=== PATIENT | male | born 1965 | race Caucasian/White ===

== ENCOUNTER → 2018-06-21 | Outpatient (CLI) | payer BC ==
--- NOTE | 2018-06-22 13:45 | XR ---
EXAMINATION TYPE: XR cervical spine limited DATE OF EXAM: 06/21/2018 TECHNIQUE: Frontal, lateral and open mouth view of the cervical spine are obtained. HISTORY: S16.1XXA Strain of muscle, fascia, tendon @ neck . Neck pain. COMPARISON: None FINDINGS: The cervical spine is visualized in its entirety from C1 thru the top of T1 level, it is s atisfactory in alignment without evidence of acute fracture or dislocation. The pre-vertebral soft t issue appears within normal limits. The C1-C2 articulation is within normal limits on the open mouth view. Multilevel degenerative disc disease is seen as facet arthropathy, uncovertebral hypertrophy, intervertebral disc space narrowing and anterior osteophytes. These are seen at C5-C7 predominantly. IMPRESSION: No acute fracture or dislocation is seen in the cervical spine. Moderate multilevel dege nerative disc disease of the cervical spine.
== END | disposition home or self-care (01) ==
LOC: RADXRMAIN 15:42
PROVIDERS: ATTEND Family Medicine
DX: M50.322 Other cervical disc degeneration at C5-C6 level (principal); S16.1XXA Strain of muscle, fascia and tendon at neck level, initial encounter
CPT/HCPCS: 72040

== ENCOUNTER → 2018-10-09 | Outpatient (CLI) | payer BC ==
--- NOTE | 2018-10-09 16:09 | MR ---
EXAMINATION TYPE: MR cervical spine wo con DATE OF EXAM: 10/09/2018 COMPARISON: Plain film 06/21/2018 HISTORY: Neck pain x 6 mos, no trauma/surgery TECHNIQUE: Multiplanar, multisequence images of the cervical spine were acquired. C2-C3: No evidence for degenerative disc disease. No disc bulge/herniation or protrusion. No Canal stenosis. Foramina are patent bilaterally. C3-C4: Small posterior disc herniation is present centrally causing anterior mass effect on the theca l sac. No significant central stenosis. Minimal anterolisthesis grade 1. No foraminal encroachment. C4-C5: Lateral extension of endplate disc complex causes mild anterior mass effect on the thecal sac, minimal bilateral foraminal encroachment, no significant central stenosis. C5-C6: Mild anterior mass effect on the thecal sac due to posterior extension endplate disc complex. There is mild right-sided foraminal encroachment. No significant central stenosis. C6-C7: Posterior broad-based disc bulge causes mild anterior mass effect on the thecal sac. No signif icant central stenosis. There is some mild right-sided foraminal encroachment due to lateral extensio n of endplate disc complex. C7-T1: No evidence for degenerative disc disease. No disc bulge/herniation or protrusion. No Canal stenosis. Foramina are patent bilaterally. Cervical segments are intact. There is near normal alignment. Cervical spinal cord is of normal sig nal. Craniovertebral junction relationships are within normal limits. Cervical vertebral bodies omar w preserved height, there is spondylosis as noted on plain film greatest at C5-6 and to lesser extent C4-5 with endplate discogenic marrow signal change, loss of disc height signal is present at interve rtebral levels compatible disc desiccation and degenerative disc disease. IMPRESSION: Degenerative disc disease as described.
== END | disposition home or self-care (01) ==
LOC: RADMRIMAIN 14:31
PROVIDERS: ATTEND Family Medicine
DX: M50.30 Other cervical disc degeneration, unspecified cervical region (principal)
CPT/HCPCS: 72141

== ENCOUNTER 2021-01-01 16:04 | Emergency (ER) | payer BC, OTHER ==
[2021-01-01 16:47] VITALS: BP 125/65; PULSE 68; RESP 16; TEMP 98.2
[2021-01-01] MEDS ORDERED: DIPH,PERTUS(ACELL)TETVAC-LF 0.5 ML VIAL IM ONE (17:11)
[2021-01-01] MEDS ORDERED: BACITRACIN OINT 1 EACH PACKET TOPICAL ONE (17:11)
[2021-01-01] MEDS ORDERED: LIDOCAINE 1% INJ 10MG/ML (20 ML MDV) SQ ONE (17:11)
--- NOTE | 2021-01-01 18:00 | ED ---
Wound/Laceration HPI - General Source: patient Mode of arrival: ambulatory Limitations: no limitations <Eula Pantoja - Last Filed: 01/01/21 21:43> <Lyudmila Gabriel - Last Filed: 01/04/21 02:22> - General Chief Complaint: Wound/Laceration Stated Complaint: Finger Lac Time Seen by Provider: 01/01/21 16:46 - History of Present Illness Initial Comments: 55 year-old male patient presents to the emergency department for evaluation of laceration to the left index finger. Patient states he was using a box bender. Injury occurred about 3 hours ago. He was unable to get the bleeding to stop so he came in for evaluation. He denies use of blood thinning medications. Denies any other injuries. Denies any significant pain or any difficulty with range of motion. Denies numbness or tingling. He is unsure when his last tetanus vaccine was given. (Eula Pantoja) - Related Data Allergies Allergy/AdvReac Type Severity Reaction Status Date / Time No Known Allergies Allergy Verified 01/01/21 16:47 Review of Systems ROS Other: All systems not noted in ROS Statement are negative. <Eula Pantoja - Last Filed: 01/01/21 21:43> ROS Other: All systems not noted in ROS Statement are negative. <Lyudmila Gabriel - Last Filed: 01/04/21 02:22> ROS Statement: Those systems with pertinent positive or pertinent negative responses have been documented in the HPI. Past Medical History Past Medical History: No Reported History History of Any Multi-Drug Resistant Organisms: None Reported Past Surgical History: No Surgical Hx Reported Past Psychological History: No Psychological Hx Reported Smoking Status: Current every day smoker Past Alcohol Use History: Occasional Past Drug Use History: None Reported <Eula Pantoja - Last Filed: 01/01/21 21:43> General Exam Limitations: no limitations General appearance: alert, in no apparent distress Respiratory exam: Present: normal lung sounds bilaterally. Absent: respiratory distress, wheezes, rales, rhonchi, stridor Cardiovascular Exam: Present: regular rate, normal rhythm, normal heart sounds. Absent: systolic murmur, diastolic murmur, rubs, gallop, clicks Extremities exam: Present: full ROM, normal capillary refill, other (There is 2cm laceration to the pad of the left index finger. Mild bleeding noted. Full range of motion. Skin is otherwise pink, warm, dry. Cap refill less than 3 seconds. Radial pulses 2+.). Absent: tenderness, pedal edema, joint swelling, calf tenderness Neurological exam: Present: alert, oriented X3, CN II-XII intact Psychiatric exam: Present: normal affect, normal mood Skin exam: Present: warm, dry, intact, normal color. Absent: rash <Eula Pantoja - Last Filed: 01/01/21 21:43> Course Vital Signs 01/01/21 16:45 Temperature 98.2 F Pulse Rate 68 Respiratory 16 Rate Blood Pressure 125/65 O2 Sat by Pulse 96 Oximetry Procedures - Laceration Laceration #1 Consent Obtained: verbal consent Indication: laceration Site: hand (left index finger) Size (cm): 2 Description: linear Depth: simple, single layer Anesthetic Used: lidocaine 1% Anesthesia Technique: local infiltration Amount (mls): 2 Type of Sutures: nylon Size of Sutures: 5-0 Number of Sutures: 3 Technique: simple, interrupted Patient Tolerated Procedure: well, no complications <Eula Pantoja - Last Filed: 01/01/21 21:43> Medical Decision Making <Eula Pantoja - Last Filed: 01/01/21 21:43> <Lyudmila Gabriel - Last Filed: 01/04/21 02:22> - Medical Decision Making 55 year-old male patient presents to the emergency department for evaluation of laceration to the left index finger. Physical exam revealed a 2cm laceration with mild bleeding. Wound was cleansed and repaired as documented. He is given instructions regarding wound care and signs or symptoms of infection. Instructions to follow-up with the primary care physician for recheck in 1-2 days. Return parameters were discussed in detail. He verbalizes understanding and agree with this plan. My attending is Dr. Gabriel. (Eula Pantoja) I was available for consultation in the emergency department. The history and physical exam were done by the midlevel provider. I was consulted for this patients care. I reviewed the case with the midlevel provider and based on their presentation of the patient, I agree with the assessment, medical decision making and plan of care as documented. Chart was dictated using [employer] dictation software. Attempts were made to correct any dictation errors however some typographical errors may persist. Patient was seen during a national state of emergency due to the Covid-19 pandemic. (Lyudmila Gabriel) Disposition Is patient prescribed a controlled substance at d/c from ED?: No Time of Disposition: 18:00 <Eula Pantoja - Last Filed: 01/01/21 21:43> <Lyudmila Gabriel - Last Filed: 01/04/21 02:22> Clinical Impression: Laceration of left middle finger Disposition: HOME SELF-CARE Condition: Good Instructions (If sedation given, give patient instructions): Care For Your Stitches (ED), Finger Laceration (ED) Additional Instructions: Keep wound clean and dry. Cleanse twice daily with warm water and antibacterial soap. Monitor for signs and symptoms of infection. I'll do primary care physician for recheck in 1-2 days. Return to the emergency department for any new, worsening, or concerning symptoms. Referrals: Laith Magallanes MD [Primary Care Provider] - 1-2 days
== END 2021-01-01 18:08 | disposition home or self-care (01) ==
LOC: EC 16:04
DX: S61.211A Laceration without foreign body of left index finger without damage to nail, initial encounter (principal); W26.9XXA Contact with unspecified sharp object(s), initial encounter; F17.200 Nicotine dependence, unspecified, uncomplicated
CPT/HCPCS: 90715; 99282; 96372; 12001; 90471; J2001

== ENCOUNTER → 2025-03-30 | Outpatient (CLI) | payer BC ==
--- NOTE | 2025-03-30 09:43 | CTL ---
EXAMINATION TYPE: CT Low Dose Lung DATE OF EXAM: 03/30/2025 9:25 AM COMPARISON: None. CLINICAL INDICATION: Male, 59 years old with history of Z87.891 PERSONAL HISTORY OF NICOTINE DEPEN Z1 2.2; FORMER SMOKER, QUIT X4 YEARS AGO. SMOKED 1 PPD X40 YEARS., history of tobacco use. TECHNIQUE: Multiple axial non-contrast scans were obtained from approximately the lung apices through the upper abdomen. Coronal and sagittal reformatted images were obtained. Low dose technique was uti lized. MIP were created on a separate workstation and submitted for review. CT DLP: 129.3 mGycm, Automated exposure control for dose reduction was used. CT Contrast: Contrast used: None Oral contrast used: None FINDINGS: Lack of intravenous contrast and low dose technique limits the evaluation of the vascular and soft ti ssue structures. LUNGS: No evidence of pulmonary fibrosis. No evidence of focal consolidation, pneumothorax or pleural effusion. Centrilobular emphysema changes. Implantable along the medial aspect of the right middle l obe Nodules: RUL: 12 x 9 mm pulmonary nodule series 5 image 27.. RML: 4 mm anterior pleural series 4 image 194.. RLL: None. JUANI: 6 mm groundglass nodule series 4 image 112. LLL: None. AIRWAY: Patent and unremarkable. HEART: Size within normal limits. No significant coronary artery calcifications. MEDIASTINUM: No gross evidence of adenopathy. Postsurgical change the gastroesophageal junction. VASCULATURE: No aortic aneurysm. MUSCULOSKELETAL: No acute osseous abnormalities SOFT TISSUES/LYMPH NODES: Unremarkable. LOWER NECK: No significant findings. UPPER ABDOMEN: No significant findings. IMPRESSION: 1. Right Upper Lobe Pulmonary Nodule Measuring 12r X [address] Mild emph[address]se[address]. CT LUNG RAD AND CT CHEST RECOMMENDATION: Lung-Rad 4A Suspicious: Follow-up 3 month LDCT or PET/CT may be used when there is a > 8 mm solid component. S Modifier (other clinically significant findings): None Recommend smoking cessation (if current smoker), or continuation of smoking cessation (if prior smoke r). Annual screening for lung cancer with low-dose computed tomography is recommended in adults ages 55 to 77 years who have a 30 pack-year smoking history and currently smoke or have quit within the pa st 15 years. Screening should be discontinued once a person has not smoked for 15 years or develops a health problem that substantially limits life expectancy or the ability or willingness to have curat zelda lung surgery. Lung rads 2021 [email or web address] [email or web address], , 03/30/2025 9:41 AM
== END | disposition home or self-care (01) ==
LOC: RADCTMAIN 08:40
PROVIDERS: ATTEND Family Medicine
DX: Z12.2 Encounter for screening for malignant neoplasm of respiratory organs (principal); R91.1 Solitary pulmonary nodule; J43.9 Emphysema, unspecified; Z87.891 Personal history of nicotine dependence
CPT/HCPCS: 71271